=== PATIENT | male | born 1950 | race Caucasian/White ===

== ENCOUNTER 2018-04-22 07:53 | Day surgery (SDC) | payer MEDICARE, MEDICAID ==
[~2018-04-22] VITALS: Ht 157.5 cm; Wt 81.6 kg
[~2018-04-22 07:53] MED LIST: ALBU18HF2 IH; BENA40TA3 PO; LORA2TAB2 PO; LORA2VIA33 PO; OMEP40CA34 PO
[2018-04-22] MEDS ORDERED: LACTATED RINGERS 1,000 ML IV SCH (09:00)
[2018-04-22] MEDS ORDERED: LOVA40TA73 PO (09:37)
[2018-04-22] MEDS ORDERED: PROPOFOL 200MG/20ML VIAL IV ONE (10:53)
[2018-04-22] MEDS ORDERED: MIDAZOLAM HCL 2 MG/2 ML VIAL ONE (10:53)
[2018-04-22] MEDS ORDERED: FENTANYL CITRATE/PF 50MCG/ML 2ML VIAL ONE (10:53)
[2018-04-22] MEDS ORDERED: ROCURONIUM BROMIDE 10MG/ML VIAL 5ML IV ONE ×2 (10:58→12:45)
[2018-04-22] MEDS ORDERED: BACITRACIN 50,000 UNITS/VIAL ONE (11:47)
[2018-04-22] MEDS ORDERED: BUPIVACAINE HCL/PF 0.5% (5MG/ML) 10ML ONE (11:47)
[2018-04-22] MEDS ORDERED: NORMAL SALINE 0.9% 10 ML SYR ONE (11:47)
[2018-04-22] MEDS ORDERED: SKIN ADHESIVE 0.7 GM EA TOP ONE (11:47)
[2018-04-22] MEDS ORDERED: LIDOCAINE HCL/PF 1% 10 MG/ML 5ML VIAL ONE (11:53)
[2018-04-22] MEDS ORDERED: METOCLOPRAMIDE HCL 10MG/2ML VIAL ONE (12:28)
[2018-04-22] MEDS ORDERED: ONDANSETRON HCL 4MG/2ML VIAL ONE (12:28)
[2018-04-22] MEDS ORDERED: EPHEDRINE SULFATE 50MG/ML VIAL ONE (12:32)
[2018-04-22] MEDS ORDERED: HYDR-3280 PO (13:25)
[2018-04-22] MEDS ORDERED: GLYCOPYRROLATE 0.2 MG/ML 2ML VIAL ONE (13:43)
[2018-04-22] MEDS ORDERED: NEOSTIGMINE METHYLSULFATE 1MG/ML 10 ML VIAL ONE (13:43)
[2018-04-22] MEDS: MORPHINE SULFATE 4 MG/ML CPJ (NOT FOR IM USE) IV PRN ×3 (14:18→15:07)
[2018-04-22 15:07] VITALS: BP 145/99
== END 2018-04-22 16:10 | disposition home or self-care (01) ==
LOC: OR 07:53
PROVIDERS: ATTEND Specialist
DX: K43.6 Other and unspecified ventral hernia with obstruction, without gangrene (principal); I10 Essential (primary) hypertension; J45.909 Unspecified asthma, uncomplicated; Z88.8 Allergy status to other drugs, medicaments and biological substances; K21.9 Gastro-esophageal reflux disease without esophagitis; F41.9 Anxiety disorder, unspecified; E78.00 Pure hypercholesterolemia, unspecified; Z79.899 Other long term (current) drug therapy
CPT/HCPCS: 49561; 49568; 93005; A4216; C1781; G0168; J2250; J2270; J2405; J2710; J2765; J3010; J3490; J7120; J2704